=== PATIENT | female | born 1985 | race Caucasian/White ===

== ENCOUNTER 2018-04-03 18:59 | Observation (INO) | payer OTHER ==
--- NOTE | 2018-04-03 19:26 | PDOC ---
Rapid Medical Evaluation Time Seen by Provider: 04/03/18 19:22 Medical Evaluation: I have performed a brief in-person evaluation of this patient. The patient presents with a chief complaint of: left sided chest pain and jaw pain since this afternoon. family member a few days ago of a heart attack (72 y/o). chest pain worse with inspiration Pertinent physical exam findings: elevated BP. No reproducible chest wall pain with palpation. Lungs CTAB I have ordered the following: labs, EKG, CXR The patient will proceed to the ED for further evaluation. Discharge Disposition - Diagnosis Chest pain - Referrals - Patient Instructions - Post Discharge Activity
[2018-04-03 19:29] VITALS: BMI 19.8
--- NOTE | 2018-04-03 19:35 | PDOC ---
History of Present Illness - General Chief Complaint: Pain Stated Complaint: CHEST PAIN Time Seen by Provider: 04/03/18 19:22 - History of Present Illness Initial Comments: 04/03/18 19:33 33 yo F with h/o HTN, Migraine disorder, and anxiety who p/w chest pain. Patient reports acute onset of chest pain at approximately 4:00 pm when at rest. She reports sharp, pain, and left sided, pleuritic, chest pressure with radiation to left sided jaw, which prompted ED visit. Patient with continued jaw pain, but now dull left sided chest pressure. Also endorsed non exertional SOB, and palpitations this AM, upon waking up from sleep; lasting for 30 minutes , adn resolving spontaneously. Patient with intermittent myalgias, and numbness of left lower extremity. Endorsed nausea without vomiting beginning yesterday evening. Patient reports multiple social stressors with work and home life. Denies medication or supplements. Patient denies F/C, orthopnea, cough, PND, leg pain/swelling, vision change, urinary complaints, abdominal pain, diarrhea, constipation, BPR, lightheadedness , weakness, sensory changes. PMHx: as noted above. Denies h/o ACS/VA, stent placement, CABG, stress testing, PE/DVT, chest trauma. ROS: as noted SHx: Denies tobacco, IVDA, Etoh. 3 cups coffee per day. Denies OCP use. FHX: Denies h/o sudden early cardiac Allergies: NKDA Past History - Past Medical History Allergies/Adverse Reactions: Allergies Allergy/AdvReac Type Severity Reaction Status Date / Time No Known Allergies Allergy Verified 04/03/18 19:26 Home Medications: Ambulatory Orders NK [No Known Home Medication] 04/03/18 COPD: No Other medical history: Migraines - Surgical History Abdominal Surgery: Yes (appenedctomy) Appendectomy: Yes - Suicide/Smoking/Psychosocial Hx Smoking Status: No Smoking History: Never smoked Have you smoked in the past 12 months: No Number of Cigarettes Smoked Daily: 0 Information on smoking cessation initiated: No Hx Alcohol Use: No Drug/Substance Use Hx: No Substance Use Type: None Review of Systems - Review of Systems Comments:: 04/03/18 19:34 GENERAL/CONSTITUTIONAL: No fever or chills. No weakness. HEAD, EYES, EARS, NOSE AND THROAT: No change in vision. No ear pain or discharge. No sore throat. CARDIOVASCULAR: + Chest pain. No shortness of breath RESPIRATORY: No cough, wheezing, or hemoptysis. GASTROINTESTINAL: No nausea, vomiting, diarrhea or constipation. GENITOURINARY: No dysuria, frequency, or change in urination. MUSCULOSKELETAL: No joint or muscle swelling or pain. No neck or back pain. SKIN: No rash NEUROLOGIC: No headache, vertigo, loss of consciousness, or change in strength/ sensation. ENDOCRINE: No increased thirst. No abnormal weight change HEMATOLOGIC/LYMPHATIC: No anemia, easy bleeding, or history of blood clots. ALLERGIC/IMMUNOLOGIC: No hives or skin allergy. *Physical Exam - Vital Signs Last Vital Signs Temp Pulse Resp BP Pulse Ox 97.8 F 99 H 20 212/143 H 99 04/03/18 19:27 04/03/18 19:27 04/03/18 19:27 04/03/18 19:27 04/03/18 19:27 - Physical Exam Comments: 04/03/18 19:35 GENERAL: Awake, alert, and fully oriented, in no acute distress HEAD: No signs of trauma, normocephalic, atraumatic EYES: PERRLA, EOMI, sclera anicteric, conjunctiva clear ENT: Hearing grossly normal, nares patent, oropharynx clear without exudates. Moist mucosa NECK: Normal ROM, supple, no lymphadenopathy, JVD, or masses LUNGS: No distress, speaks full sentences, clear to auscultation bilaterally HEART: Regular rate and rhythm, normal S1 and S2, no murmurs, rubs or gallops, peripheral pulses normal and equal bilaterally. ABDOMEN: Soft, nontender, normoactive bowel sounds. No guarding, no rebound. No masses EXTREMITIES : Normal inspection, Normal range of motion, no edema. No clubbing or cyanosis. SKIN: Warm, Dry, normal turgor, no rashes or lesions noted ED Treatment Course - LABORATORY CBC & Chemistry Diagram: 04/03/18 20:37 04/03/18 22:29 Medical Decision Making - Medical Decision Making 04/03/18 19:56 33 yo F with h/o HTN, Migraine disorder, and anxiety who p/w left sided, pleuritic, non exertional chest pain/pressure, and SOB. 212/143, HR 99, vitals otherwise wnl, AF. ACS/VA r/o. PERC NEG PE. Low suspicion PNA. Low suspicion AAA , Ao dissection. Will consider HTN emergency. Evaluate for cardiac dysarrythmias , thyroid dysfunction, electrolyte abnml, metabolic and toxic derangements, acid -base disturbances, infection. 04/03/18 20:07 ED Course: CBC,CMP, TSH, Cardiac Pr, Urine Preg EKG, CXR Drug Screen EKG: NSR with absent ANDRES, STD. Normal interval duration and axis. 04/03/18 23:10 TSH: Neg Trop: Neg CBC,CMP: Unremarkable 04/03/18 23:37 Repeat BP 167/136. Patient with continued chest discomfort. Labetalol 10 mg IV Plan to admit tele/obs 04/04/18 00:27 Admit to [facility]. *DC/Admit/Observation/Transfer Diagnosis at time of Disposition: Chest pain Qualifiers: Chest pain type: chest pain on breathing Qualified Code(s): R07.1 - Chest pain on breathing - Discharge Dispostion Condition at time of disposition: Stable Decision to Admit order: Yes - Referrals Referrals: Freddie Shipman MD [Staff Physician] - - Patient Instructions Printed Discharge Instructions: DI for Chest Pain Additional Instructions: Please return to the emergency department with any new or worsening symptoms or concerns. Please follow up with your primary care physician within 72 hours. Please follow up with cardiology within one week. - Post Discharge Activity - Attestations Physician Attestion: 04/03/18 19:35 I attest to the information provided in this note.
--- NOTE | 2018-04-03 21:03 | PDOC ---
Attending Attestation - Resident Resident Name: Jose Cruz Valderrama - ED Attending Attestation I have performed the following: I have examined & evaluated the patient, The case was reviewed & discussed with the resident, I agree w/resident's findings & plan, Exceptions are as noted - HPI HPI: 04/03/18 20:50 Patient is a 33 y/o female with a h/o HTN, anxiety, and migraine disorder who presents to the emergency department for evaluation of acute onset of sharp left sided chest pain while at rest at 4pm. Pt was at rest when symptoms began. Patient endorses left sided chest pressure and radiation to the left side of her jaw. Pt reports associated symptoms of SOB and palpitations upon waking this morning Which has since resolved. Pt endorses nausea without emesis yesterday evening and recent life stressors. She reports her uncle had a ME 4 days ago (passing at age 71). Patient reports having a fever with Tmax of 99.3 as well as non-productive cough this morning. 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 Pt not on control. Denies recent travel/immobility, headache, PND, orthopnea, fevers, chills, orthopnea, leg pain, or changes to vision or hearing. Denies diarrhea, constipation, urinary urgency/frequency, dysuria, and hematuria. In triage, pt's BP noted to be elevated despite multiple rechecks in the 200s/ 130s. Bp is symmetric b/l. Pt reports many elevated BP readings during previous medical visits. She reports her BP has been elevated to this level before when she was in urgent care over the summer for cellulitis and also when she gave . She states she has seen her PMD a few times over the last year for maxalt , she does not know if her BP was elevated during those visits. Pt was on BP medication many years ago, but does not remember the name. She self DC-ed it when she stopped her OCPs as she thought the OCPs were causing the HTN. Denies cocaine or other drug use. Denies heavy etoh use (last drank 4 days ago) . Denies supplement use. - Physicial Exam PE: 04/03/18 21:03 GENERAL: Awake, alert, and fully oriented, in no acute distress HEAD: No signs of trauma EYES: PERRLA, EOMI, sclera anicteric, conjunctiva clear ENT: Auricles normal inspection, hearing grossly normal, nares patent, oropharynx clear without exudates. Moist mucosa NECK: Normal ROM, supple, no lymphadenopathy, JVD, or masses LUNGS: Breath sounds equal, clear to auscultation bilaterally. No wheezes, and no crackles HEART: Regular rate and rhythm, normal S1 and S2, no murmurs, rubs or gallops ABDOMEN: Soft, nontender, normoactive bowel sounds. No guarding, no rebound. No masses EXTREMITIES: Normal range of motion, no edema. No clubbing or cyanosis. No cords, erythema, or tenderness NEUROLOGICAL: Normal speech, cranial nerves intact, negative pronator drift, 5/ 5 strength in all 4 extremities, normal sensation to light touch in all 4 extremities, normal cerebellar exam, normal gait, normal reflexes and tone SKIN: Warm, Dry, normal turgor, no rashes or lesions noted. - Medical Decision Making 04/03/18 21:03 33yo F hx HTN (not on meds) presents to the ED with CP, SOB, palpitations and markedly elevated BP on multiple checks. EKG non ischemic. Will check labs for end organ damage, anticipate admission for BP management given consistent CP. Pt meets no PERC criteria, thus low likelihood PE. 04/04/18 00:35 Labs with no end organ Pt with persistent cp radiating to jaw Given possibilty of acs, pt given labetalol 10mg IV for lowering of BP Pt admitted to hosp for ffurther mgmt Case discussed in detail with admitting physician including history, physical exam and ancillary studies. Admitting physician has assumed care for the patient, will follow all pending diagnostics and will complete the evaluation and treatment. Heart Score/ECG Review #1 04/03/18 21:05 Twelve-lead EKG was performed and reviewed by me. Normal sinus rhythm, rate 80. Normal axis and intervals. No ST elevations or T-wave inversions.
[2018-04-03 21:14] LABS: BASO % 0.8 % (0-2.0); EOS % 1.8 % (0-4.5); HEMATOCRIT 43.3 % (32.4-45.2); HEMOGLOBIN 14.8 GM/dL (10.7-15.3); LYMPH % 23.1 % (8-40); MCH 31.3 pg (25.7-33.7); MCHC 34.2 g/dl (32.0-36.0); MEAN CELL VOLUME 91.6 fl (80-96); MEAN PLT VOLUME 9.5 fl (7.5-11.1); MONO % 6.2 % (3.8-10.2); NEUT % 68.1 % (42.8-82.8); PLATELET COUNT 141 K/MM3 (134-434); RBC 4.73 M/mm3 (3.60-5.2); RDW 12.1 % (11.6-15.6); WHITE BLOOD COUNT 8.1 K/mm3 (4.0-10.0)
[2018-04-03 22:52] LABS: COCAINE, UR NEGATIVE ng/ml (CUTOFF=300); METHADONE, UR NEGATIVE ng/ml (CUTOFF=300); OPIATES, URI NEGATIVE ng/ml (CUTOFF=300); PHENCYCLIDINE,URINE NEGATIVE ng/ml (CUTOFF=25); URINE AMPHETAMINES NEGATIVE ng/ml (CUTOFF=500); URINE BARBITURATES NEGATIVE ng/ml (CUTOFF=200); URINE BENZODIAZEPINES NEGATIVE ng/ml (CUTOFF=200)
[2018-04-03 23:01] LABS: ALK PHOS 83 U/L (45-117); ANION GAP 7 MMOL/L (8-16); BILIRUBIN,TOTAL 0.6 mg/dL (0.2-1); BLOOD UREA NITROGEN 12 mg/dL (7-18); CALCIUM 8.4 mg/dL (8.5-10.1); CHLORIDE 105 mmol/L (98-107); CO2 28 mmol/L (21-32); CREATININE 0.6 mg/dL (0.55-1.3); GLUCOSE,RANDOM 86 mg/dL (74-106); POTASSIUM 4.2 mmol/L (3.5-5.1); SGOT/AST 14 U/L (15-37); SGPT/ALT 18 U/L (13-61); SODIUM 140 mmol/L (136-145); TOT PROT 7.2 g/dl (6.4-8.2)
[2018-04-03] MEDS ORDERED: LABETALOL HCL 5 MG/1 ML (100MG/20 ML VIAL) IVPUSH ONE (23:38)
--- NOTE | 2018-04-04 00:46 | PN ---
Teaching Attending Note Name of Resident: Janay Cavazos ATTENDING PHYSICIAN STATEMENT I saw and evaluated the patient. I reviewed the resident's note and discussed the case with the resident. I agree with the resident's findings and plan as documented. SUBJECTIVE: Patient is a 33 year old woman with history of HTN, Back pain, Migraine headache and anxiety who presents with chest pain. Patient reports acute onset of chest pain at approximately 4:00 pm while at rest. She reports sharp, pain, and left sided, pleuritic, chest pressure with radiation to left sided jaw. Patient with continued jaw pain, but now dull left sided chest pressure. Also had non exertional SOB, and palpitations this AM, upon waking up from sleep; lasting for 30 minutes - resolving spontaneously. Patient with intermittent myalgias, and numbness of left lower extremity. Has nausea without vomiting beginning yesterday evening. Patient reports multiple social stressors with work and home life. Denies medication or supplements. OBJECTIVE: Alert Vital Signs Period Temp Pulse Resp BP Sys/Murillo Pulse Ox Last 24 Hr 97.8 F-98.5 F 82-99 19-20 151-212/105-143 99 HEENT: No Jaundice, eye redness or discharge, PERRLA, EOMI. No papilledema; Normocephalic, atraumatic. External ears are normal and hearing is grossly intact. No nasal discharge. Neck: Supple, nontender. No palpable adenopathy or thyromegaly. No JVD Chest: Good effort. Clear to auscultation and percussion. Heart: Regular. No S3, rub or murmur Abdomen: Not distended, soft, nontender and no HSM. No rebound or guarding. Normoactive bowel sounds. Ext: Peripheral pulses intact. No leg edema. Skin: Warm and dry. No petechiae, rash or ecchymosis. Neuro: Alert. Oriented x3. CN 2-12 grossly intact. Sensation grossly intact in all four extremities and DTR are symmetric. Home Medications Medication Instructions Recorded NK [No Known Home Medication] 04/03/18 Abnormal Lab Results 04/03/18 22:29 Anion Gap 7 L Calcium 8.4 L AST 14 L ASSESSMENT AND PLAN: 1. Chest pain and Uncontrolled Hypertension - Pain is atypical. No changes of ACS on EKG and troponin is negative. Will admit to telemetry to rule out ACS. Get CT chest to rule out aortic dissection and get ECHO. Needs work up to rule out secondary hypertension. Patient has poor insight. Most important is the need for compassionate but blunt patient education about consequences of untreated severe hypertension. Must quit ingesting lots of NSAIDS for back pain. Counseled to try local pain control, warm compress and exercise. Low salt diet stressed. Start Labetalol 100 mg po bid and HCTZ 12.5 mg po qd. 2. DVT prophylaxis - Lovenox 40 mg SQ q 24 hours. 3. Advance directives - Full code
--- NOTE | 2018-04-04 03:47 | HP ---
CHIEF COMPLAINT: chest pain and shortness of breath PCP: Dr. Heredia HISTORY OF PRESENT ILLNESS: 33F w/ pmhx of HTN (uncontrolled), migraines, and anxiety presents in the ED w/ complains of chest pain and shortness of breath. Pt states that at 2:30am last night, she had woken up with sob followed by diarrhea. She states she has never had an episode like this before. At 4:30pm that day she started to have sharp L- sided chest pain at rest that radiated to the the L jaw and L shoulder. She states that the chest pain is worsened with deep inspiration. Upon presentation in the ED, pt reports that her chest pain had subsided to a dull pain with L sided pressure. She also states she had not taken anything for the chest pain. Additionally, pt admits her uncle had recently of an CT which has caused her significant stress over the past week. She denies headaches/dizziness, lightheadedness, fever/chills, nausea/vomiting, orthopnea, cough, neck pain, vision changes, urinary symptoms, abdominal pain. Of note she reports that she had a hx of HTN when she was 23 while she was taking contraceptive pills, however, she stopped taking the pills after she discontinued her oral contraception. ER course was notable for: (1) BP 212/143, Trop neg, EKG showed NSR (2) Labetalol 10 mg IVP given (3) Recent Travel: Recently took a road trip to [place] a couple of days ago PAST MEDICAL HISTORY: Uncontrolled HTN Migraines Anxiety PAST SURGICAL HISTORY: Appendectomy Partial coccygectomy Social History: Smoking: Denies Alcohol: Socially, drinks 2-3 drinks at a time Drugs: Socially Family History: Maternal grandmother: stroke Paternal grandmother: stroke, HTN Allergies No Known Allergies Allergy (Verified 04/03/18 19:26) HOME MEDICATIONS: Home Medications Medication Instructions Recorded NK [No Known Home Medication] 04/03/18 REVIEW OF SYSTEMS CONSTITUTIONAL: denies fever, chills, diaphoresis, generalized weakness, malaise , loss of appetite, weight change HEENT: denies rhinorrhea, nasal congestion, ear pain, eye pain, visual changes CARDIOVASCULAR: +pleuritic chest pain; denies syncope, palpitations, irregular heart rate, lightheadedness, peripheral edema RESPIRATORY: +shortness of breath; denies cough, dyspnea with exertion, orthopnea, wheezing, stridor, hemoptysis GASTROINTESTINAL: denies abdominal pain, abdominal distension, nausea, vomiting , diarrhea, constipation, melena, hematochezia GENITOURINARY: denies dysuria, frequency, urgency, hesitancy, hematuria, flank pain, genital pain MUSCULOSKELETAL: denies myalgia, arthralgia, joint swelling, back pain, neck pain ENDOCRINE: denies unexplained weight gain, unexplained weight loss, heat intolerance, cold intolerance NEUROLOGIC: denies headache, focal weakness or paresthesias, dizziness, unsteady gait, seizure, mental status changes, bladder or bowel incontinence PSYCHIATRIC: denies anxiety, depression, suicidal or homicidal ideation, hallucinations. PHYSICAL EXAMINATION Vital Signs - 24 hr 04/03/18 04/04/18 04/04/18 19:27 00:29 02:23 Temperature 97.8 F 98.5 F Pulse Rate 99 H Pulse Rate [ 82 89 Left Radial] Respiratory 20 19 19 Rate Blood Pressure 212/143 H Blood Pressure 151/105 H 136/92 [Right Arm] O2 Sat by Pulse 99 Oximetry (%) GENERAL: AAOx3. NAD. Resting comfortably. HEENT: AT/NC. EOMI. BRENNA. Moist mucus membranes. NECK: Normal range of motion, supple without lymphadenopathy, JVD, or masses. LUNGS: CTA B/L. No w/r/r noted. HEART: RRR. Normal S1, S2. No murmurs noted. ABDOMEN: Soft, NT/ND. Normoactive bowel sounds in all 4 Q's. No masses or bruits noted. MUSCULOSKELETAL: Normal range of motion at all joints. No bony deformities or tenderness. No CVA tenderness. UPPER EXTREMITIES: 2+ pulses, warm, well-perfused. No cyanosis. No clubbing. No peripheral edema. 5/5 muscle strength b/l. LOWER EXTREMITIES: 2+ pulses, warm, well-perfused. No calf tenderness. No peripheral edema. 5/5 muscle strength b/l. NEUROLOGICAL: Facial symmetry. Facial muscles intact. Normal speech. PSYCHIATRIC: Cooperative. Good eye contact. Appropriate mood and affect. SKIN: Warm, dry, normal turgor, no rashes or lesions noted, normal capillary refill. Laboratory Results - last 24 hr 04/03/18 04/03/18 04/03/18 20:37 20:37 20:37 WBC 8.1 RBC 4.73 Hgb 14.8 Hct 43.3 MCV 91.6 MCH 31.3 MCHC 34.2 RDW 12.1 Plt Count 141 D MPV 9.5 D Absolute Neuts (auto) 5.5 Neutrophils % 68.1 Lymphocytes % 23.1 Monocytes % 6.2 Eosinophils % 1.8 Basophils % 0.8 Nucleated RBC % 0 Sodium Cancelled Potassium Cancelled Chloride Cancelled Carbon Dioxide Cancelled Anion Gap Cancelled BUN Cancelled Creatinine Cancelled Creat Clearance w eGFR Cancelled Random Glucose Cancelled Calcium Cancelled Total Bilirubin Cancelled AST Cancelled ALT Cancelled Alkaline Phosphatase Cancelled Creatine Kinase Cancelled Troponin I Cancelled B-Natriuretic Peptide Cancelled Total Protein Cancelled Albumin Cancelled TSH Cancelled Urine HCG, Qual Opiates Screen Methadone Screen Barbiturate Screen Phencyclidine Screen Ur Amphetamines Screen MDMA (Ecstasy) Screen Benzodiazepines Screen Cocaine Screen U Marijuana (THC) Screen 04/03/18 04/03/18 04/03/18 20:49 20:49 22:29 WBC RBC Hgb Hct MCV MCH MCHC RDW Plt Count MPV Absolute Neuts (auto) Neutrophils % Lymphocytes % Monocytes % Eosinophils % Basophils % Nucleated RBC % Sodium Potassium Chloride Carbon Dioxide Anion Gap BUN Creatinine Creat Clearance w eGFR Random Glucose Calcium Total Bilirubin AST ALT Alkaline Phosphatase Creatine Kinase 52 Troponin I < 0.02 B-Natriuretic Peptide Total Protein Albumin TSH 1.39 Urine HCG, Qual Negative Opiates Screen Negative Methadone Screen Negative Barbiturate Screen Negative Phencyclidine Screen Negative Ur Amphetamines Screen Negative MDMA (Ecstasy) Screen Negative Benzodiazepines Screen Negative Cocaine Screen Negative U Marijuana (THC) Screen Negative 04/03/18 22:29 WBC RBC Hgb Hct MCV MCH MCHC RDW Plt Count MPV Absolute Neuts (auto) Neutrophils % Lymphocytes % Monocytes % Eosinophils % Basophils % Nucleated RBC % Sodium 140 Potassium 4.2 Chloride 105 Carbon Dioxide 28 Anion Gap 7 L BUN 12 Creatinine 0.6 Creat Clearance w eGFR > 60 Random Glucose 86 Calcium 8.4 L Total Bilirubin 0.6 AST 14 L ALT 18 Alkaline Phosphatase 83 Creatine Kinase Troponin I B-Natriuretic Peptide Total Protein 7.2 Albumin 4.0 TSH Urine HCG, Qual Opiates Screen Methadone Screen Barbiturate Screen Phencyclidine Screen Ur Amphetamines Screen MDMA (Ecstasy) Screen Benzodiazepines Screen Cocaine Screen U Marijuana (THC) Screen ASSESSMENT/PLAN: 33F w/ pmhx of uncontrolled HTN, migraines, anxiety presented to the ED with chest pain and sob admitted for further cardiac eval r/o ACS. #atypical chest pain, r/o ACS; Low suspicion for ACS due to pt's improving chest pain that is pleuritic in nature however, because of pt's extensive history of elevated BPs and lack of insight on importance of BP control, will further evaluate to r/o aortic dissection. -Trops neg x1, EKG unremarkable -repeat trops and EKG -CT chest w/ contrast ordered to r/o aortic dissection -cardio consult ordered #uncontrolled HTN; Currently 178/117. -Labetolol 10 mg IVP given in ED -cont w/ Labetolol 200 mg PO BID -HCTZ 12.5 mg PO QD -recheck BP Q4H -Pt needs education on medication compliance, importance of BP control and to limit NSAID use as it can be cause of elevated BP -nephro consult #migraine -resume home med Rizatriptan (Pt has own supply) #DVT Ppx -Lovenox 40mg SQ QD #FEN -IVf -recheck lytes in AM -sodium-controlled diet dispo -admit tele obs -full code Visit type - Emergency Visit Emergency Visit: Yes ED Registration Date: 04/03/18 Care time: The patient presented to the Emergency Department on the above date and was hospitalized for further evaluation of their emergent condition. - New Patient This patient is new to me today: Yes Date on this admission: 04/04/18 - Critical Care Critical Care patient: No
[2018-04-04 06:47] LABS: BASO % 0.8 % (0-2.0); EOS % 2.8 % (0-4.5); HEMATOCRIT 42.2 % (32.4-45.2); HEMOGLOBIN 14.3 GM/dL (10.7-15.3); LYMPH % 25.1 % (8-40); MCHC 33.9 g/dl (32.0-36.0); MEAN CELL VOLUME 91.5 fl (80-96); MEAN PLT VOLUME 8.9 fl (7.5-11.1); MONO % 6.9 % (3.8-10.2); NEUT % 64.4 % (42.8-82.8); PLATELET COUNT 98 K/MM3 (134-434); RBC 4.61 M/mm3 (3.60-5.2); RDW 12.2 % (11.6-15.6); WHITE BLOOD COUNT 5.5 K/mm3 (4.0-10.0)
[2018-04-04 07:09] LABS: ALBUMIN 3.9 g/dl (3.4-5.0); ALK PHOS 71 U/L (45-117); ANION GAP 10 MMOL/L (8-16); BILIRUBIN,TOTAL 0.8 mg/dL (0.2-1); BLOOD UREA NITROGEN 8 mg/dL (7-18); CALCIUM 8.4 mg/dL (8.5-10.1); CHLORIDE 107 mmol/L (98-107); CO2 26 mmol/L (21-32); CREATININE 0.5 mg/dL (0.55-1.3); GLUCOSE,RANDOM 81 mg/dL (74-106); MAGNESIUM 2.5 mg/dL (1.8-2.4); POTASSIUM 4.3 mmol/L (3.5-5.1); SGOT/AST 9 U/L (15-37); SGPT/ALT 16 U/L (13-61); SODIUM 143 mmol/L (136-145)
--- NOTE | 2018-04-04 09:56 | PN ---
Progress Note, Physician History of Present Illness: 33F w/ pmhx of HTN (uncontrolled), migraines, and anxiety presents in the ED w/ complains of chest pain and shortness of breath. Pt states that at 2:30am last night, she had woken up with sob followed by diarrhea. She states she has never had an episode like this before. At 4:30pm that day she started to have sharp L- sided chest pain at rest that radiated to the the L jaw and L shoulder. She states that the chest pain is worsened with deep inspiration. Upon presentation in the ED, pt reports that her chest pain had subsided to a dull pain with L sided pressure. She also states she had not taken anything for the chest pain. Additionally, pt admits her uncle had recently of an [place] which has caused her significant stress over the past week. She denies headaches/dizziness, lightheadedness, fever/chills, nausea/vomiting, orthopnea, cough, neck pain, vision changes, urinary symptoms, abdominal pain. Of note she reports that she had a hx of HTN when she was 23 while she was taking contraceptive pills, however, she stopped taking the pills after she discontinued her oral contraception. ER course was notable for: (1) BP 212/143, Trop neg, EKG showed NSR (2) Labetalol 10 mg IVP given - Current Medication List Current Medications: Active Medications Enoxaparin Sodium (Lovenox -) 40 mg SQ DAILY ALDA Hydrochlorothiazide (Hctz -) 12.5 mg PO DAILY ALDA Labetalol HCl (Normodyne -) 200 mg PO BID [facility] - Objective Vital Signs: Vital Signs Temperature 98.5 F 04/04/18 06:27 Pulse Rate 87 04/04/18 06:27 Respiratory Rate 19 04/04/18 06:27 Blood Pressure 146/78 04/04/18 06:27 O2 Sat by Pulse Oximetry (%) 99 04/03/18 19:27 Eyes: Yes: WNL, Conjunctiva Clear, EOM Intact HENT: Yes: WNL, Atraumatic, Normocephalic Neck: Yes: WNL, Supple, Trachea Midline Cardiovascular: Yes: WNL, Regular Rate and Rhythm Respiratory: Yes: WNL, Regular, CTA Bilaterally Gastrointestinal: Yes: WNL, Normal Bowel Sounds Genitourinary: Yes: WNL Musculoskeletal: Yes: WNL Extremities: Yes: WNL Edema: No Integumentary: Yes: WNL Neurological: Yes: WNL, Alert, Oriented ...Motor Strength: WNL Psychiatric: Yes: WNL Labs: CBC, BMP 04/04/18 06:00 04/04/18 06:00
[2018-04-04] MEDS ORDERED: HYDROCHLOROTHIAZIDE 12.5 MG CAPSULE (FP) PO SCH (10:00)
[2018-04-04] MEDS: LABETALOL HCL 200 MG TABLET (FP) PO SCH ×2 (10:35→21:50)
[2018-04-04] MEDS: ENOXAPARIN NA (PORCINE) 40 MG/0.4 ML DISP.SYRIN SQ SCH (10:35)
--- NOTE | 2018-04-04 10:43 | EKG ---
Test Reason : Blood Pressure : / mmHG Vent. Rate : 074 BPM Atrial Rate : 074 BPM P-R Int : 140 ms QRS Dur : 084 ms QT Int : 408 ms P-R-T Axes : 079 053 061 degrees QTc Int : 452 ms NORMAL SINUS RHYTHM NORMAL ECG WHEN COMPARED WITH ECG OF 03-APR-2018 19:39, NO SIGNIFICANT CHANGE WAS FOUND Confirmed by LILI KRAMER MD ([id number]) on 04/04/2018 10:42:34 AM Referred By: Confirmed By:LILI KRAMER MD
--- NOTE | 2018-04-04 10:47 | CON.CARD ---
Consult Consult Specialty:: Cardiology - History of Present Illness History of Present Illness: 33F w/ pmhx of HTN (uncontrolled), migraines, and anxiety presents in the ED w/ complains of chest pain and shortness of breath. Pt states that at 2:30am last night, she had woken up with sob followed by diarrhea. She states she has never had an episode like this before. At 4:30pm that day she started to have sharp L- sided chest pain at rest that radiated to the the L jaw and L shoulder. She states that the chest pain is worsened with deep inspiration. Upon presentation in the ED, pt reports that her chest pain had subsided to a dull pain with L sided pressure. She also states she had not taken anything for the chest pain. Additionally, pt admits her uncle had recently of an UT which has caused her significant stress over the past week. She denies headaches/dizziness, lightheadedness, fever/chills, nausea/vomiting, orthopnea, cough, neck pain, vision changes, urinary symptoms, abdominal pain. Of note she reports that she had a hx of HTN when she was 23 while she was taking contraceptive pills, however, she stopped taking the pills after she discontinued her oral contraception. ER course was notable for: (1) BP 212/143, Trop neg, EKG showed NSR (2) Labetalol 10 mg IVP given - History Source History Provided By: Patient, Medical Record - Past Medical History Cardio/Vascular: Yes: HTN - Alcohol/Substance Use Hx Alcohol Use: No - Smoking History Smoking history: Never smoked Have you smoked in the past 12 months: No Aproximately how many cigarettes per day: 0 Home Medications - Allergies Allergies/Adverse Reactions: Allergies Allergy/AdvReac Type Severity Reaction Status Date / Time No Known Allergies Allergy Verified 04/03/18 19:26 - Home Medications Home Medications: Ambulatory Orders NK [No Known Home Medication] 04/03/18 Review of Systems - Review of Systems Constitutional: reports: No Symptoms Eyes: reports: No Symptoms HENT: reports: No Symptoms Neck: reports: No Symptoms Cardiovascular: reports: Chest Pain Gastrointestinal: reports: No Symptoms Genitourinary: reports: No Symptoms Breasts: reports: No Symptoms Reported Musculoskeletal: reports: No Symptoms Integumentary: reports: No Symptoms Neurological: reports: No Symptoms Endocrine: reports: No Symptoms Hematology/Lymphatic: reports: No Symptoms Psychiatric: reports: No Symptoms Vital Signs: Vital Signs Temperature 98.5 F 04/04/18 06:27 Pulse Rate 78 04/04/18 10:00 Respiratory Rate 16 04/04/18 10:00 Blood Pressure 149/100 04/04/18 10:00 O2 Sat by Pulse Oximetry (%) 100 04/04/18 10:00 Constitutional: Yes: Well Nourished, No Distress, Calm Eyes: Yes: WNL, Conjunctiva Clear, EOM Intact HENT: Yes: WNL, Atraumatic, Normocephalic Neck: Yes: WNL, Supple, Trachea Midline Respiratory: Yes: WNL, Regular, CTA Bilaterally Gastrointestinal: Yes: WNL, Normal Bowel Sounds Renal/: Yes: WNL Cardiovascular: Yes: WNL, Regular Rate and Rhythm Musculoskeletal: Yes: WNL Extremities: Yes: WNL Integumentary: Yes: WNL Neurological: Yes: WNL, Alert, Oriented ...Motor Strength: WNL Psychiatric: Yes: WNL, Alert, Oriented - Other Data Labs, Other Data: CBC, BMP 04/04/18 06:00 04/04/18 06:00 Troponin, BNP 04/03/18 04/03/18 04/04/18 20:37 22:29 04:27 Troponin I Cancelled < 0.02 < 0.02 B-Natriuretic Peptide Cancelled Troponin, BNP 04/03/18 04/03/18 04/04/18 20:37 22:29 04:27 Troponin I Cancelled < 0.02 < 0.02 B-Natriuretic Peptide Cancelled Imaging - Results Chest X-ray: Image Reviewed (wnl) EKG: Image Reviewed (sr wnl) Problem List - Problems (1) Chest pain Code(s): R07.9 - CHEST PAIN, UNSPECIFIED Qualifiers: Chest pain type: chest pain on breathing Qualified Code(s): R07.1 - Chest pain on breathing; R07.81 - Pleurodynia Assessment/Plan chest pain sx htn r/o mi neg plan Norvasc [address] chest -no dissection but no comment re PE? - may need to be clarified echo stress tets when bp controlled and pe r/o fasting lipids profile
--- NOTE | 2018-04-04 11:09 | EKG ---
Test Reason : Blood Pressure : / mmHG Vent. Rate : 080 BPM Atrial Rate : 080 BPM P-R Int : 136 ms QRS Dur : 078 ms QT Int : 392 ms P-R-T Axes : 076 059 070 degrees QTc Int : 452 ms NORMAL SINUS RHYTHM NORMAL ECG NO PREVIOUS ECGS AVAILABLE Confirmed by LILI KRAMER MD ([id number]) on 04/04/2018 11:09:05 AM Referred By: Confirmed By:LILI KRAMER MD
[2018-04-04 11:36] LABS: CHOLESTEROL 147 mg/dL (50-200); HDL CHOLESTEROL 62 mg/dL (40-60); TRIGLYCERIDES 52 mg/dL (0-150)
[2018-04-04] MEDS ORDERED: ASPIRIN 325 MG TABLET ONE (11:41)
[2018-04-04] MEDS ORDERED: amLODIPine BESYLATE 5 MG TABLET (FP) ONE (11:41)
[2018-04-04] MEDS: ASPIRIN 325 MG ENTERIC COATED TABLET (FP) PO SCH (11:46)
--- NOTE | 2018-04-04 16:30 | ECHO ---
Version: 1 Name: CATHERINE GUY Exam: Adult Echocardiogram Study Date: 04/04/2018, 2:44 PM Age: 33 Years MMode/2D Measurements & Calculations IVSd: 0.79 cm LVIDs: 2.7 cm LVIDd: 4.3 cm LVPWd: 0.75 cm Ao root diam: 3.1 cm LA dimension: 2.6 cm Doppler Measurements & Calculations MV E max theo: 65.9 cm/sec Med E/e': 9.5 MV A max theo: 43.9 cm/sec Med Peak E' Theo: 6.9 cm/sec MV E/A: 1.50 Lat E/e': 5.8 Lat Peak E' Theo: 11.3 cm/sec TR max theo: 182.3 cm/sec TR max P.3 mmHg Procedure A two-dimensional transthoracic echocardiogram with color flow and Doppler was performed. Left Ventricle The left ventricular size, thickness and function are normal. The left ventricular ejection fraction is normal. E/A reversal consistent with but not diagnostic of poor LV compliance. The left ventricular wall motion is normal. Right Ventricle The right ventricle is normal in size and function. Atria Normal left and right atrial size and function. Mitral Valve The mitral valve is grossly normal. There is no mitral valve stenosis. There is trace mitral regurgi tation. Tricuspid Valve The tricuspid valve is not well visualized, but is grossly normal. There is no tricuspid stenosis. T here is trace tricuspid regurgitation. Right ventricular systolic pressure is normal. Aortic Valve The aortic valve is normal in structure and function. No hemodynamically significant valvular aortic stenosis. No aortic regurgitation is present. Pulmonic Valve The pulmonic valve is not well visualized. There is no pulmonic valvular stenosis. There is no pulmo oriana valvular regurgitation. Great Vessels The aortic root is normal size. Pericardium/Pleura There is no pericardial effusion. Summary Statements E/A reversal consistent with but not diagnostic of poor LV compliance The left ventricular ejection fraction is normal. The left ventricular size, thickness and function are normal The left ventricular wall motion is normal. The right ventricle is normal in size and function. There is trace mitral regurgitation. There is trace tricuspid regurgitation. Right ventricular systolic pressure is normal. MD Freddie Shipman 04/04/2018, 4:30 PM Ordering Physician: Freddie Shipman Referring Physician: JIMMY ARMSTRONG Performed By: Romana Harp
[2018-04-04] MEDS: amLODIPine BESYLATE 5 MG TABLET (FP) PO SCH (17:12)
[2018-04-04] MEDS ORDERED: METOCLOPRAMIDE HCL INJECTION 10 MG/2 ML VIAL IVPUSH ONE (17:13)
[2018-04-04] MEDS ORDERED: ACETAMINOPHEN 1000 MG/100 ML VIAL (NON FORMULARY) IVPB ONE (17:13)
[2018-04-04] MEDS ORDERED: METOCLOPRAMIDE HCL INJECTION 10 MG/2 ML VIAL ONE (17:14)
[2018-04-04] MEDS ORDERED: ACETAMINOPHEN INJECTION 100 ML IVPB ONE (17:14)
--- NOTE | 2018-04-04 17:59 | PN ---
Teaching Attending Note Name of Resident: Rosa Maria Noe ATTENDING PHYSICIAN STATEMENT I saw and evaluated the patient. I reviewed the resident's note and discussed the case with the resident. I agree with the resident's findings and plan as documented. SUBJECTIVE:seen at 10 am No fever or chills. reports CP last night that radiated to her L sided jaw, and scalp as well to her L sided abdomen ( LUQ, LLQ) .had 2 loose BM last night . she has migraines and now she thinks she is having one. she had used her triptan medication this am . OBJECTIVE: NAD CV: RRR, no JVD Lungs: CTAB Abd: soft, minimal TTP in LLQ , ND , L BS Ext : no edema ASSESSMENT AND PLAN: 33 y/o lady with h/o untreated HTN, anxiety, migraines and back pain who presented with L sided chest pain 1- Acute CP : atypical . EKG with sinus rhythm with no ST or Tw changes. QTC 453. description and radiation don't point to a cardiac etiology trop nl x2 lipid panel noted stress test per card echo pending 2- HTN urgency : BP improved. - cont labetalol - norvasc added 3- Migraines: - hold Triptan meds with this uncontrolled HTN -try Fioricet dispo : pending stress and echo
--- NOTE | 2018-04-04 20:11 | PN ---
Physical Exam: SUBJECTIVE: Patient seen and examined this morning at bedside. Has not seen her PCP in approx 1 year but has visited a local urgent care that has made mention of her elevated BP. This is the first time she has experienced SOB and cough with Left side chest and jaw pain. Pain was 0/10 during my interview but was 8/ 10 at worst. Additionally complains of LLQ gas pain; had some loose stools this past monday. Patient says her migraines in the past can be proceeded by eye pain described as a "screwdriver in her eye." In past she has used 1 tablet of her home dose rizatriptan, however lately she has been needing 2 to manage the pain. Patient was unable tolerate having the room light on during my interview. Her LMP ended this past week. OBJECTIVE: Vital Signs Period Temp Pulse Resp BP Sys/Murillo Pulse Ox Last 24 Hr 97.9 F-98.5 F 78-89 16-19 117-151/67-105 100-100 GENERAL: A&Ox3, NAD HEAD: NCAT EYES: PERRL, EOMI, wearing glasses ENT: Oropharynx clear without exudates, MMM NECK: No JVD. No carotid bruit LUNGS: CTA B/L, no wheezes HEART: Regular rate and rhythm, S1, S2 without murmur ABDOMEN: Soft, Slightly tender to palpation in the LLQ, nondistended, + bowel sounds, no guarding EXTREMITIES: 2+ pulses, no edema NEUROLOGICAL: Cranial nerves II through XII grossly intact. Normal speech. C5- T1 and L4-S1 gross sensation intact throughout. 5/5 Muscle strength to handgrip , Elbow flexion/extension, Hip flexion/extension, dorsiflexion, platarflexion. SKIN: Warm, dry, no rashes or lesions noted Laboratory Results - last 24 hr 04/03/18 04/03/18 04/03/18 20:37 20:37 20:37 WBC 8.1 RBC 4.73 Hgb 14.8 Hct 43.3 MCV 91.6 MCH 31.3 MCHC 34.2 RDW 12.1 Plt Count 141 D MPV 9.5 D Absolute Neuts (auto) 5.5 Neutrophils % 68.1 Lymphocytes % 23.1 Monocytes % 6.2 Eosinophils % 1.8 Basophils % 0.8 Nucleated RBC % 0 Sodium Cancelled Potassium Cancelled Chloride Cancelled Carbon Dioxide Cancelled Anion Gap Cancelled BUN Cancelled Creatinine Cancelled Creat Clearance w eGFR Cancelled Random Glucose Cancelled Calcium Cancelled Phosphorus Magnesium Total Bilirubin Cancelled AST Cancelled ALT Cancelled Alkaline Phosphatase Cancelled Creatine Kinase Cancelled Troponin I Cancelled B-Natriuretic Peptide Cancelled Total Protein Cancelled Albumin Cancelled Triglycerides Cholesterol Total LDL Cholesterol HDL Cholesterol TSH Cancelled Urine HCG, Qual Opiates Screen Methadone Screen Barbiturate Screen Phencyclidine Screen Ur Amphetamines Screen MDMA (Ecstasy) Screen Benzodiazepines Screen Cocaine Screen U Marijuana (THC) Screen 04/03/18 04/03/18 04/03/18 20:49 20:49 22:29 WBC RBC Hgb Hct MCV MCH MCHC RDW Plt Count MPV Absolute Neuts (auto) Neutrophils % Lymphocytes % Monocytes % Eosinophils % Basophils % Nucleated RBC % Sodium Potassium Chloride Carbon Dioxide Anion Gap BUN Creatinine Creat Clearance w eGFR Random Glucose Calcium Phosphorus Magnesium Total Bilirubin AST ALT Alkaline Phosphatase Creatine Kinase 52 Troponin I < 0.02 B-Natriuretic Peptide Total Protein Albumin Triglycerides Cholesterol Total LDL Cholesterol HDL Cholesterol TSH 1.39 Urine HCG, Qual Negative Opiates Screen Negative Methadone Screen Negative Barbiturate Screen Negative Phencyclidine Screen Negative Ur Amphetamines Screen Negative MDMA (Ecstasy) Screen Negative Benzodiazepines Screen Negative Cocaine Screen Negative U Marijuana (THC) Screen Negative 04/03/18 04/04/18 04/04/18 22:29 04:27 06:00 WBC 5.5 RBC 4.61 Hgb 14.3 Hct 42.2 MCV 91.5 MCH 31.0 MCHC 33.9 RDW 12.2 Plt Count 98 L D MPV 8.9 Absolute Neuts (auto) 3.5 Neutrophils % 64.4 Lymphocytes % 25.1 Monocytes % 6.9 Eosinophils % 2.8 Basophils % 0.8 Nucleated RBC % 0 Sodium 140 Potassium 4.2 Chloride 105 Carbon Dioxide 28 Anion Gap 7 L BUN 12 Creatinine 0.6 Creat Clearance w eGFR > 60 Random Glucose 86 Calcium 8.4 L Phosphorus Magnesium Total Bilirubin 0.6 AST 14 L ALT 18 Alkaline Phosphatase 83 Creatine Kinase Troponin I < 0.02 B-Natriuretic Peptide Total Protein 7.2 Albumin 4.0 Triglycerides Cholesterol Total LDL Cholesterol HDL Cholesterol TSH Urine HCG, Qual Opiates Screen Methadone Screen Barbiturate Screen Phencyclidine Screen Ur Amphetamines Screen MDMA (Ecstasy) Screen Benzodiazepines Screen Cocaine Screen U Marijuana (THC) Screen 04/04/18 04/04/18 04/04/18 06:00 11:00 11:00 WBC RBC Hgb Hct MCV MCH MCHC RDW Plt Count MPV Absolute Neuts (auto) Neutrophils % Lymphocytes % Monocytes % Eosinophils % Basophils % Nucleated RBC % Sodium 143 Potassium 4.3 Chloride 107 Carbon Dioxide 26 Anion Gap 10 BUN 8 Creatinine 0.5 L Creat Clearance w eGFR > 60 Random Glucose 81 Calcium 8.4 L Phosphorus 4.0 Magnesium 2.5 H Total Bilirubin 0.8 AST 9 L ALT 16 Alkaline Phosphatase 71 Creatine Kinase Troponin I < 0.02 Cancelled B-Natriuretic Peptide Total Protein 7.0 Albumin 3.9 Triglycerides 52 Cancelled Cholesterol 147 Cancelled Total LDL Cholesterol 81 Cancelled HDL Cholesterol 62 H Cancelled TSH Urine HCG, Qual Opiates Screen Methadone Screen Barbiturate Screen Phencyclidine Screen Ur Amphetamines Screen MDMA (Ecstasy) Screen Benzodiazepines Screen Cocaine Screen U Marijuana (THC) Screen IMAGING: -EKG (04/04): NORMAL SINUS RHYTHM, NORMAL ECG -EKG (04/04): NORMAL SINUS RHYTHM, NORMAL ECG -CXR: No acute chest pathology. No change of an adverse nature since 03/27/2009. -Chest CT With contrast: No evidence of thoracic aortic aneurysm or dissection. No acute pathology within the chest. The central pulmonary arteries are well- opacified without evidence of filling defects suspicious for PE. More distal branch emboli cannot be excluded. A follow-up study utilizing pulmonary embolism protocol may be warranted, if clinically indicated. There is no evidence of a pericardial effusion -ECHO: LV EF is normal, LV Size thickness and function are normal, LV wall motion is normal, Trace MR and TR Active Medications Acetaminophen/Butalbital/Caffeine (Fioricet -) 1 tablet PO Q6H PRN PRN Reason: HEADACHE Amlodipine Besylate (Norvasc -) 5 mg PO DAILY [facility] Last Admin: 04/04/18 17:12 Dose: 5 mg Aspirin (Ecotrin -) 325 mg PO DAILY [facility] Last Admin: 04/04/18 11:46 Dose: 325 mg Enoxaparin Sodium (Lovenox -) 40 mg SQ DAILY [facility] Last Admin: 04/04/18 10:35 Dose: 40 mg Labetalol HCl (Normodyne -) 200 mg PO BID [facility] Last Admin: 04/04/18 10:35 Dose: 200 mg ASSESSMENT/PLAN: 33 y/o F w/ PMHx of uncontrolled HTN and migraines presents to the ED with chest pain and sob admitted to r/o ACS. 1. Atypical chest pain, r/o ACS -Trops <0.02 x3, EKG Noted above -ECHO: LV EF is normal, LV Size thickness and function are normal, LV wall motion is normal -Lipid panel noted above\\ -Cardiology (Dr. Shipman) consulted: Treadmill stress test in AM 2. Hypertensive Urgency -Labetolol 10 mg IVP given in ED -Continue Labetolol -Started Norvasc today 3. Hx of Migraine -Home dose Rizatriptan held as vasoconstriction will Inc BP -Started Fioricet 4. FEN -PO Fluids -Lytes wnl -NPO After midnight for Stress test 5. PPx -DVT: Lovenox dispo: tele obs Visit type - Emergency Visit Emergency Visit: Yes ED Registration Date: 04/03/18 Care time: The patient presented to the Emergency Department on the above date and was hospitalized for further evaluation of their emergent condition. - New Patient This patient is new to me today: Yes Date on this admission: 04/04/18 - Critical Care Critical Care patient: No
[2018-04-04] MEDS: ACETAMINOPHEN/CAFFEINE/BUTALBITAL 1 TAB PO PRN (21:50)
[2018-04-05 07:52] LABS: CHOLESTEROL 139 mg/dL (50-200); HDL CHOLESTEROL 64 mg/dL (40-60); TRIGLYCERIDES 52 mg/dL (0-150)
[2018-04-05] MEDS: LABETALOL HCL 200 MG TABLET (FP) PO SCH (09:06)
[2018-04-05] MEDS: amLODIPine BESYLATE 5 MG TABLET (FP) PO SCH ×2 (09:06→11:19)
[2018-04-05] MEDS: ASPIRIN 325 MG ENTERIC COATED TABLET (FP) PO SCH ×2 (09:06→11:19)
[2018-04-05] MEDS ORDERED: FLU VACCINE QUAD 60 MCG/0.5 ML (MDV 18-19) IM ONE (10:00)
[2018-04-05] MEDS: ENOXAPARIN NA (PORCINE) 40 MG/0.4 ML DISP.SYRIN SQ SCH (11:18)
[2018-04-05] MEDS: ACETAMINOPHEN/CAFFEINE/BUTALBITAL 1 TAB PO PRN ×2 (11:19→16:47)
[2018-04-05 13:46] VITALS: BP 136/87; PULSE 85; TEMP 98.2
--- NOTE | 2018-04-05 14:18 | PN ---
Teaching Attending Note Name of Resident: Rosa Maria Noe ATTENDING PHYSICIAN STATEMENT I saw and evaluated the patient. I reviewed the resident's note and discussed the case with the resident. I agree with the resident's findings and plan as documented. SUBJECTIVE: No fever or chills . No CP. no diarrhea , no N/V . no dysuria . No SOB OBJECTIVE: NAD CV: RRR, no JVD Lungs: CTAB Abd: soft, minimal discomfort in LLQ , ND , L BS Ext : no edema ASSESSMENT AND PLAN: 33 y/o lady with h/o untreated HTN, anxiety, migraines and back pain who presented with L sided chest pain 1- Atypical CP: resolved . lipid panel noted stress test today echo reviewed. diastolic dysfunction 2- HTN urgency: BP improved. - cont labetalol and norvasc 3- Migraines: - Fioricet dispo : dc is pending stress test results
--- NOTE | 2018-04-05 15:10 | TRE ---
Protocol Name : CLARENCE Max Work Load (METS*10) : 122 Time In Exercise Phase : 00:10:19 Max. Systolic BP : 168 mmHg Max Diastolic BP : 100 mmHg Max Heart Rate : 169 BPM Max Predicted Heart Rate : 189 BPM Attending Physician : DR CRAIG Reason For Termination : Target Heart Rate Achieved Reason for Test : CHEST PAIN Stress Protocol : CLARENCE Rest HR : 107 BPM PeakEx METs : 12.2 METS Arrhythmias : No Arrhythmias Resting ECG : Normal Recovery ECG Response (OLD) : Overall Impression : Normal stress test Chest Pain : none HR Response To Exercise : Normal Overall HR Response To Exercise BP Response To Exercise : Normal Resting BP with Appropriate Response Functional Capacity : Normal Diagnosis : Confirmed by Latia Brody ([id number]) on 04/05/2018 3:10:02 PM
--- NOTE | 2018-04-05 16:23 | DS ---
Physical Exam: SUBJECTIVE: Patient seen and examined this morning at bedside. Denies any chest pain, SOB, nausea, vomiting. OBJECTIVE: Vital Signs Period Temp Pulse Resp BP Sys/Murillo Pulse Ox Last 24 Hr 97.4 F-98.2 F 72-91 16-20 111-149/57-87 99-100 PHYSICAL EXAM GENERAL: A&Ox3, NAD HEAD: NCAT EYES: PERRL, EOMI, wearing glasses ENT: Oropharynx clear without exudates, MMM NECK: No JVD. No carotid bruit LUNGS: CTA B/L, no wheezes HEART: Regular rate and rhythm, S1, S2 without murmur ABDOMEN: Soft, Slightly tender to palpation in the LLQ, nondistended, + bowel sounds, no guarding EXTREMITIES: 2+ pulses, no edema NEUROLOGICAL: Cranial nerves II through XII grossly intact. Normal speech. C5- T1 and L4-S1 gross sensation intact throughout. 5/5 Muscle strength to handgrip , Elbow flexion/extension, Hip flexion/extension, dorsiflexion, platarflexion. SKIN: Warm, dry, no rashes or lesions noted LABS Laboratory Results - last 24 hr 04/04/18 04/05/18 06:00 06:26 Triglycerides 52 Cholesterol 139 Total LDL Cholesterol 81 HDL Cholesterol 64 H PTH Intact 98 H IMAGING: -EKG (04/04): NORMAL SINUS RHYTHM, NORMAL ECG -EKG (04/04): NORMAL SINUS RHYTHM, NORMAL ECG -CXR: No acute chest pathology. No change of an adverse nature since 03/27/2009. -Chest CT With contrast: No evidence of thoracic aortic aneurysm or dissection. No acute pathology within the chest. The central pulmonary arteries are well- opacified without evidence of filling defects suspicious for PE. More distal branch emboli cannot be excluded. A follow-up study utilizing pulmonary embolism protocol may be warranted, if clinically indicated. There is no evidence of a pericardial effusion -ECHO: LV EF is normal, LV Size thickness and function are normal, LV wall motion is normal, Trace MR and TR -Exercise Stress Test Summary: Resting ECG: Normal. Functional Capacity: Normal. HR Response to Exercise: Normal Overall HR Response To Exercise. BP Response to Exercise: Normal Resting BP with Appropriate Response. Chest Pain: none. Arrhythmias: No Arrhythmias. ST Changes: Depression upsloping, ST Depression During Exercise. Overall Impression: Normal stress test. HOSPITAL COURSE: Date of Admission:04/03/18 Date of Discharge: 04/05/18 33 y/o F w/ PMHx of HTN (uncontrolled) and migraines presented to the ED with chest pain and shortness of breath and was observed on Tele to rule out ACS. Troponins < 0.02 x 3 and EKG showed NSR. Echo revealed LV EF and wall motion were both normal. The overall impression of her Exercise stress test was normal. Her BP on admission was elevated at 212/143. She was started on labetalol and Norvasc, and the SBP stayed in the 140's. Her home does rizatriptan was held during her hosiptal stay, but was resumed upon discharge. Her PTH level was slightly elevated at 98. Patient was discharged home with strict instructions to follow up with her primary for further management Minutes to complete discharge: 40 Discharge Summary Reason For Visit: CHEST PAIN Current Active Problems Hypertensive urgency (Acute) Chest pain (Acute) Condition: Improved - Instructions Diet, Activity, Other Instructions: You were admitted to the hospital for chest pain. Your lab work did not suggest this pain is cardiac in nature. You had a exercise stress test and the results are normal. During your stay, your blood pressure became very high. Please take these medications as prescribed. You are being started on Norvasc 5mg daily and Labetalol 200mg twice a day. It is very important you monitor your blood pressure daily, as elevated blood pressure places you at risk for complications like stroke. You can continue using Rizatriptan to control your migraines, however this is a medication that can raise your blood pressure. For this reason, It is very important you take your blood pressure medications as prescribed. Please follow up with your primary care physician in one week to further monitor your blood pressure. Continue all your other medications as prescribed Please return to the ER if you have any signs or symptoms of chest pain, shortness of breath, uncontrollable fever, chills, nausea, vomiting, numbness, tingling, or weakness in any part of your body, changes in vision, or slurred speech. Please return to the ER if symptoms persist, worsen, or new symptoms arise. blood level of PTH ( hormone secreted from the para-thyroid gland) is slightly elevated. you need repeat in 2 weeks. please follow up with your pcp regarding that as you might need further work up is it remains elevated Referrals: Freddie Shipman MD [Staff Physician] - Yuliya Heredia MD [Non Staff, Medical] - Disposition: HOME - Home Medications Comprehensive Discharge Medication List: Ambulatory Orders Amlodipine Besylate [Norvasc -] 5 mg PO DAILY #30 tablet 04/05/18 Labetalol HCl [Normodyne -] 200 mg PO BID #60 tablet 04/05/18 Rizatriptan Benzoate [Rizatriptan] 10 mg PO PRN PRN 04/05/18 This patient is new to me today: No Emergency Visit: Yes ED Registration Date: 04/03/18 Care time: The patient presented to the Emergency Department on the above date and was hospitalized for further evaluation of their emergent condition. Critical Care patient: No - Discharge Referral Referred to [facility] No
--- NOTE | 2018-04-05 18:13 | PN ---
Progress Note, Physician Chief Complaint: Pt without chest pain or dyspnea. History of Present Illness: 33 yo F with h/o HTN, Migraine disorder, and anxiety who p/w chest pain. Patient reports acute onset of chest pain at approximately 4:00 pm when at rest. She reports sharp, pain, and left sided, pleuritic, chest pressure with radiation to left sided jaw, which prompted ED visit. Patient with continued jaw pain, but now dull left sided chest pressure. Also endorsed non exertional SOB, and palpitations this AM, upon waking up from sleep; lasting for 30 minutes , adn resolving spontaneously. Patient with intermittent myalgias, and numbness of left lower extremity. Endorsed nausea without vomiting beginning yesterday evening. Patient reports multiple social stressors with work and home life. Denies medication or supplements. - Current Medication List Current Medications: Active Medications Acetaminophen/Butalbital/Caffeine (Fioricet -) 1 tablet PO Q6H PRN PRN Reason: HEADACHE Last Admin: 04/05/18 16:47 Dose: 1 tablet Amlodipine Besylate (Norvasc -) 5 mg PO DAILY [facility] Last Admin: 04/05/18 11:19 Dose: 5 mg Aspirin (Ecotrin -) 325 mg PO DAILY [facility] Last Admin: 04/05/18 11:19 Dose: 325 mg Enoxaparin Sodium (Lovenox -) 40 mg SQ DAILY [facility] Last Admin: 04/05/18 11:18 Dose: 40 mg Labetalol HCl (Normodyne -) 200 mg PO BID [facility] Last Admin: 04/05/18 09:06 Dose: Not Given - Objective Vital Signs: Vital Signs Temperature 98.2 F 04/05/18 13:46 Pulse Rate 85 04/05/18 13:46 Respiratory Rate 20 04/05/18 13:46 Blood Pressure 136/87 04/05/18 13:46 O2 Sat by Pulse Oximetry (%) 99 04/05/18 13:00 Constitutional: Yes: No Distress Eyes: Yes: WNL HENT: Yes: WNL Neck: Yes: WNL Cardiovascular: Yes: WNL Respiratory: Yes: WNL Gastrointestinal: Yes: Soft ...Rectal Exam: Yes: Deferred Genitourinary: No: Anuria Breast(s): Yes: WNL Musculoskeletal: Yes: WNL Extremities: Yes: WNL Edema: No Peripheral Pulses WNL: Yes Integumentary: Yes: WNL Neurological: Yes: WNL Psychiatric: Yes: WNL Labs: CBC, BMP 04/04/18 06:00 04/04/18 06:00 Abnormal Lab Results 04/04/18 04/05/18 06:00 06:26 HDL Cholesterol 64 H PTH Intact 98 H Problem List - Problems (1) Chest pain Assessment/Plan: Stress MIBI negative for ischemia. F?u as outpatient, from cardiac perspective. Code(s): R07.9 - CHEST PAIN, UNSPECIFIED Qualifiers: Chest pain type: chest pain on breathing Qualified Code(s): R07.1 - Chest pain on breathing; R07.81 - Pleurodynia (2) Hypertensive urgency Assessment/Plan: on labetolol and amlodipine. Code(s): I16.0 - HYPERTENSIVE URGENCY (3) Migraine headache Code(s): G43.909 - MIGRAINE, UNSP, NOT INTRACTABLE, WITHOUT STATUS MIGRAINOSUS
--- NOTE | 2018-04-05 22:07 | EKG ---
Test Reason : Blood Pressure : / mmHG Vent. Rate : 066 BPM Atrial Rate : 066 BPM P-R Int : 138 ms QRS Dur : 088 ms QT Int : 424 ms P-R-T Axes : 069 051 062 degrees QTc Int : 444 ms NORMAL SINUS RHYTHM NONSPECIFIC T WAVE ABNORMALITY ABNORMAL ECG WHEN COMPARED WITH ECG OF 04-APR-2018 04:26, NO SIGNIFICANT CHANGE WAS FOUND Confirmed by EDIS CLAY MD ([id number]) on 04/05/2018 10:07:12 PM Referred By: Confirmed By:EDIS CLAY MD
== END 2018-04-05 17:00 | disposition home or self-care (01) ==
LOC: JER 18:59 → JERBED 23:38 → UNDOADMOB 04-04 00:41 → J4W 04-04 19:30
PROVIDERS: ADMIT Internal Medicine; ATTEND Internal Medicine
PROC: 3E033NZ Introduction of Analgesics, Hypnotics, Sedatives into Peripheral Vein, Percutaneous Approach (ICD-10-PCS; principal; 2018-04-03)
PROC: 3E033GC Introduction of Other Therapeutic Substance into Peripheral Vein, Percutaneous Approach (ICD-10-PCS; 2018-04-03)
PROC: 3E013GC Introduction of Other Therapeutic Substance into Subcutaneous Tissue, Percutaneous Approach (ICD-10-PCS; 2018-04-03)
DX: R07.89 Other chest pain (principal); I16.0 Hypertensive urgency; G43.909 Migraine, unspecified, not intractable, without status migrainosus
CPT/HCPCS: 36415; 71045-TC-FY; 71260-TC; 80053; 80061; 80307; 82550; 83721; 83735; 83970; 84100; 84443; 84484; 84703; 85025; 93005; 93010; 93017; 93018; 93306-TC; 96372; 96374; 96375; 99285-25; G0378; J0131

== ENCOUNTER 2023-04-10 10:58 | Emergency (ER) | payer BC, OTHER ==
[2023-04-10 11:03] VITALS: BP 146/92; PULSE 81; RESP 18; TEMP 97.3; BMI 21.6
[2023-04-10] MEDS ORDERED: CYCLOBENZAPRINE HCL 10 MG TABLET (FP) PO ONE (11:35)
[2023-04-10] MEDS ORDERED: ACETAMINOPHEN 500 MG TABLET (FP) PO ONE (11:35)
[2023-04-10] MEDS ORDERED: LIDOCAINE 5% TOPICAL PATCH TP ONE (11:35)
[2023-04-10] MEDS ORDERED: predniSONE 20 MG TABLET (UD) PO ONE (11:36)
[2023-04-10] MEDS ORDERED: CYCLOBENZAPRINE HCL 10 MG TABLET (FP) ONE (11:38)
[2023-04-10] MEDS ORDERED: LIDOCAINE 4% PATCH TP ONE (11:38)
[2023-04-10] MEDS ORDERED: ACETAMINOPHEN 500 MG TABLET (FP) ONE (11:38)
[2023-04-10] MEDS ORDERED: predniSONE 20 MG TABLET (UD) ONE (11:39)
[2023-04-10] MEDS ORDERED: LIDOCAINE PATCH REMOVAL MC SCH (22:00)
== END 2023-04-10 13:39 | disposition home or self-care (01) ==
LOC: JER 10:58
DX: M54.50 Low back pain, unspecified (principal); S39.012A Strain of muscle, fascia and tendon of lower back, initial encounter; X50.1XXA Overexertion from prolonged static or awkward postures, initial encounter
CPT/HCPCS: 72131-TC; 99284-25

== ENCOUNTER 2024-12-03 09:36 | Emergency (ER) | payer BC ==
[2024-12-03 09:44] VITALS: TEMP 98.7; BMI 23.3
[2024-12-03 10:58] LABS: ABSOLUTE IMMATURE GRANULOCYTES 0.02 x10^3/uL (0.0-0.031); BASOPHILS # 0.06 x10^3/uL (0.01-0.08); EOSINOPHIL % 3.7 % (0.7-5.8); EOSINOPHILS # 0.25 x10^3/uL (0.04-0.36); HEMATOCRIT 41.4 % (34.1-44.9); HEMOGLOBIN 13.9 g/dL (11.2-15.7); MCHC 33.6 g/dl (32.2-35.5); MEAN CELL VOLUME 92.8 fl (79.4-94.8); MEAN PLT VOLUME 9.5 fl (9.4-12.3); MONOCYTE # 0.42 x10^3/uL (0.24-0.86); MONOCYTE % 6.2 % (4.7-12.5); PLATELET COUNT 214 x10^3/uL (182-369); RDW 12.4 % (12.1-16.8)
[2024-12-03 11:05] LABS: EPI CELLS 8 /uL (0-25.1); HYALINE CASTS 0 /uL (0-3.1); PH,URINE 6.5 (5.0-8.0); URINE APPEARANCE CLEAR; URINE BACTERIA 8 /uL (0-1359); URINE BILIRUBIN NEGATIVE (NEGATIVE); URINE COLOR YELLOW; URINE GLUCOSE (UA) NEGATIVE (NEGATIVE); URINE KETONE NEGATIVE (NEGATIVE); URINE LEUK ESTERASE NEGATIVE (NEGATIVE); URINE NITRITE NEGATIVE (NEGATIVE); URINE PROTEIN NEGATIVE (NEGATIVE); URINE RBC 44 /uL (0-23.9); URINE UROBILINOGEN 0.2 mg/dL (0.2-1.0); URINE WBC 4 /uL (0-25.8)
[2024-12-03 11:57] LABS: POTASSIUM 5.2 mmol/L (3.5-5.1)
[2024-12-03 11:59] LABS: BLOOD UREA NITROGEN 11.9 mg/dL (7-18); CALCIUM 9.8 mg/dL (8.5-10.1)
[2024-12-03 12:03] LABS: CREATININE 0.7 mg/dL (0.55-1.3)
[2024-12-03 12:04] LABS: BILIRUBIN,TOTAL 0.7 mg/dL (0.2-1); TOT PROT 7.5 g/dl (6.4-8.2)
[2024-12-03 12:21] VITALS: BP 142/84; PULSE 67; RESP 16
== END 2024-12-03 13:07 | disposition home or self-care (01) ==
LOC: JER 09:36
DX: I10 Essential (primary) hypertension (principal); F41.9 Anxiety disorder, unspecified
CPT/HCPCS: 36415; 71045-TC-FY; 80053; 81003; 84484; 85025; 87086; 93005; 93010; 99285-25